=== PATIENT | female | born 1975 | race Caucasian/White ===

== ENCOUNTER 2016-08-22 17:55 | Emergency (ER) | payer MEDICAID ==
[2016-08-22 18:09] VITALS: BP 115/76; PULSE 89; RESP 18; TEMP 97.2; O2SAT 98
--- NOTE | 2016-08-22 19:19 | C.PDOC ---
History Of Present Illness 41 year old female presents to the ED with complaints of sore throat, ear pain, and coughing that began this morning. She notes no past medical problems. Patient denies nausea, vomiting, and diarrhea. Time Seen by Provider: 08/22/16 18:45 Chief Complaint (Nursing): Flu-like Symptoms History Per: Patient History/Exam Limitations: no limitations Onset/Duration Of Symptoms: Hrs Current Symptoms Are (Timing): Still Present Location Of Pain: Ear(s), Throat, Other (nose ) Associated Symptoms: Sore Throat, Cough. denies: Nausea, Vomiting, Diarrhea Ear Symptoms: Bilateral: Ear Pain Past Medical History Reviewed: Historical Data, Nursing Documentation, Vital Signs Vital Signs: Last Vital Signs Temp 97.2 F L 08/22/16 18:06 Pulse 89 08/22/16 18:06 Resp 18 08/22/16 18:06 BP 115/76 08/22/16 18:06 Pulse Ox 98 08/22/16 19:23 Family History: States: Unknown Family Hx - Social History Hx Alcohol Use: No Hx Substance Use: No - Immunization History Hx Tetanus Toxoid Vaccination: No Hx Influenza Vaccination: No Hx Pneumococcal Vaccination: No Review Of Systems Constitutional: Negative for: Fever Gastrointestinal: Negative for: Nausea, Vomiting, Diarrhea Physical Exam - Physical Exam Appears: Non-toxic Skin: Warm, Dry Head: Atraumatic, Normacephalic Eye(s): bilateral: Normal Inspection, PERRL, EOMI Ear(s): Bilateral: Normal Oral Mucosa: Moist Throat: Normal, No Erythema, No Exudate Neck: Normal ROM, Supple Chest: Symmetrical, No Tenderness Cardiovascular: Rhythm Regular, No Friction Rub, No Murmur Respiratory: Normal Breath Sounds, No Rales, No Rhonchi, No Wheezing Gastrointestinal/Abdominal: Soft, No Tenderness Back: Normal Inspection, No CVA Tenderness Extremity: Normal ROM, No Tenderness, No Swelling Pulses: Left Dorsalis Pedis: Normal, Right Dorsalis Pedis: Normal Neurological/Psych: Oriented x3, Normal Speech, Normal Motor Gait: Steady ED Course And Treatment O2 Sat by Pulse Oximetry: 98 (Room Air) Pulse Ox Interpretation: Normal Disposition - Disposition Referrals: Iggy Taylor MD [Staff Provider] - Disposition: HOME/ ROUTINE Disposition Time: 19:00 Condition: GOOD Additional Instructions: Follow up with the medical doctor within 1-2 days. Return if worsened, Prescriptions: Loratadine [Claritin] 10 mg PO DAILY #10 tab Ibuprofen [Motrin] 1 tab PO TID PRN #30 tab PRN Reason: Pain Benzonatate [Tessalon Perles] 200 mg PO TID PRN #21 sgl PRN Reason: Cough predniSONE [Prednisone] 20 mg PO BID #10 tab Instructions: Upper Respiratory Infection (ED) - Clinical Impression Clinical Impression: Upper respiratory infection - Scribe Statement The provider has reviewed the documentation as recorded by the Scribe Felipa Lowe All medical record entries made by the Juanibhilary were at my direction and personally dictated by me. I have reviewed the chart and agree that the record accurately reflects my personal performance of the history, physical exam, medical decision making, and the department course for this patient. I have also personally directed, reviewed, and agree with the discharge instructions and disposition.
== END 2016-08-22 19:36 | disposition home or self-care (01) ==
LOC: C.ER 17:55
DX: J06.9 Acute upper respiratory infection, unspecified (principal)